=== PATIENT | female | born 1995 | race Caucasian/White ===

== ENCOUNTER 2021-12-01 22:43 | Inpatient (IN) | payer OTHER ==
[2021-12-01 23:15] LABS: BILIRUBIN NEGATIVE (NEGATIVE); BLOOD 2+ Ery/uL (NEGATIVE); CLARITY CLEAR (CLEAR); COLOR YELLOW (YELLOW); GLUCOSE (U) NORMAL (NORMAL); LEUKOCYTES 3+ Leu/uL (NEGATIVE); NITRITE POSITIVE (NEGATIVE); PROTEIN 2+ mg/dL (NEGATIVE); SPECIFIC GRAVITY >=1.030 (1.001-1.030); UROBILINOGEN 0.2 mg/dL (0.2-1.0)
[2021-12-01 23:21] LABS: BARBITURATES NEGATIVE (NEGATIVE); ECSTASY (MDMA) NEGATIVE (NEGATIVE); MARIJUANA (THC) NEGATIVE (NEGATIVE); METHADONE NEGATIVE (NEGATIVE); OPIATES NEGATIVE (NEGATIVE)
[2021-12-01 23:22] LABS: AMPHETAMINES NEGATIVE (NEGATIVE); OXYCODONE NEGATIVE (NEGATIVE)
[2021-12-02 01:12] LABS: HCT 37.6 % (37.0-47.0); HGB 12.6 g/dl (12.5-16.0); MCH 30.7 pg (25.0-31.0); MCHC 33.5 g/dL (32.0-36.0); MCV 91.5 fL (78.0-100.0); MPV 11.5 fL (6.0-9.5); RBC 4.11 M/uL (4.20-5.40); WBC 13.9 K/uL (4.0-10.5)
[2021-12-02 01:21] LABS: ALBUMIN 2.9 g/dL (3.4-5.0); BILIRUBIN - TOTAL 0.4 mg/dL (0.2-1.0); BUN/CREAT RATIO (CALC) 12.9 RATIO; CREATININE 0.7 mg/dL (0.51-0.95); GLOBULIN (CALCULATION) 4.2 g/dL; POTASSIUM 3.8 mmol/L (3.5-5.1); TOTAL PROTEIN 7.1 g/dL (6.4-8.2)
[2021-12-02 01:33] LABS: PROTEIN:CREATININE 1.5 RATIO; URINE CREATININE 161.78 mg/dL (29.00-226.00); URINE TOTAL PROTEIN-RANDOM 242.8 mg/dL (<11.9)
[2021-12-04 09:03] LABS: HCT 36.7 % (37.0-47.0); MCHC 32.7 g/dL (32.0-36.0); MCV 94.8 fL (78.0-100.0); MPV 11.6 fL (6.0-9.5); RBC 3.87 M/uL (4.20-5.40); RDW 14.5 % (11.5-14.0); WBC 12.1 K/uL (4.0-10.5)
== END 2021-12-04 19:00 | disposition home or self-care (01) | DRG 806 ==
LOC: FOD 22:43 → FOB 22:44 → FOD 12-02 00:30 → FOB 12-02 00:32
PROVIDERS: ADMIT Obstetrics & Gynecology
PROC: 3E0P7VZ Introduction of Hormone into Female Reproductive, Via Natural or Artificial Opening (ICD-10-PCS; 2021-12-02)
PROC: 10E0XZZ Delivery of Products of Conception, External Approach (ICD-10-PCS; principal; 2021-12-03)
PROC: 0UQMXZZ Repair Vulva, External Approach (ICD-10-PCS; 2021-12-03)
PROC: 3E0134Z Introduction of Serum, Toxoid and Vaccine into Subcutaneous Tissue, Percutaneous Approach (ICD-10-PCS; 2021-12-04)
DX: O14.04 Mild to moderate pre-eclampsia, complicating childbirth (principal); N39.0 Urinary tract infection, site not specified; Z37.0 Single live birth; Z3A.38 38 weeks gestation of pregnancy; Z23 Encounter for immunization; Z20.822 Contact with and (suspected) exposure to COVID-19; O23.43 Unspecified infection of urinary tract in pregnancy, third trimester; O24.425 Gestational diabetes mellitus in childbirth, controlled by oral hypoglycemic drugs; O99.214 Obesity complicating childbirth; O71.82 Other specified trauma to perineum and vulva; O99.284 Endocrine, nutritional and metabolic diseases complicating childbirth; E28.2 Polycystic ovarian syndrome
CPT/HCPCS: 36415; 80053; 80305; 81003; 82570; 82947; 82962; 83615; 84156; 86850; 86900; 86901; J0595; J0696; J7120; U0002